=== PATIENT | male | born 1990 | race Caucasian/White ===

== ENCOUNTER 2022-01-20 02:34 | Inpatient (IN) | payer MEDICAID ==
[~2022-01-20] VITALS: Ht 365.8 cm; Wt 59.5 kg
[2022-01-20] VITALS (15 sets, daily range): BP systolic 105–132; BP diastolic 59–80
[2022-01-20] MEDS ORDERED: metoclopramide 5 mg/ml inj IV ONE (02:45)
[2022-01-20] MEDS ORDERED: normal saline 1000ml 1,000 ML IV ONE ×4 (03:05→04:40)
[2022-01-20 03:14] LABS: BASOPHILS % (AUTO) 0.2 % (0-1); EOSINOPHILS % (AUTO) 0.1 % (0-6); LYMPHOCYTES # (AUTO) 2.3 X10'3 (1.1-4.8); LYMPHOCYTES % (AUTO) 10.5 % (21-51); MEAN PLATELET VOLUME 9.5 FL (7.4-10.4); MONOCYTES # (AUTO) 0.9 X10'3 (0-0.9); MONOCYTES % (AUTO) 4.1 % (2-12); NEUTROPHILS # (AUTO) 18.8 X10'3 (1.8-7.7); NEUTROPHILS % (AUTO) 85.1 % (42-75); PLATELET COUNT 555 X10'3 (140-440); WHITE BLOOD COUNT 22.1 X10'3 (4.5-11.0)
[2022-01-20 03:15] LABS: CLARITY,URINE CLEAR (Clear); COLOR,URINE YELLOW (Yellow); GLUCOSE, URINE 500 mg/dl (Neg); KETONES,URINE >=80 mg/dl (Neg); LEUKOCYTE ESTERASE ,URINE NEGATIVE (Neg); NITRITES, URINE NEGATIVE (Neg); OCCULT BLOOD,URINE TRACE-INTACT (Neg); PH,URINE 5.5 (4.8-8.0); PROTEIN,URINE 30 mg/dl (Neg); UROBILINOGEN,URINE 0.2 E.U/dL (0.2-1.0)
[2022-01-20 03:23] LABS: ALANINE AMINOTRANSFERASE 78 U/L (12-78); ALBUMIN 3.5 G/DL (3.4-5.0); ALBUMIN/GLOBULIN RATIO 0.8 (1.1-1.5); ALKALINE PHOSPHATASE 88 IU/L (46-116); ANION GAP 33 (8-16); ASPARTATE AMINO TRANSFERASE 76 U/L (10-37); BILIRUBIN,TOTAL 0.5 MG/DL (0.1-1.0); BLOOD UREA NITROGEN 17 MG/DL (7-18); BUN/CREATININE RATIO 11.5 (5.4-32.0); CALCIUM 8.8 MG/DL (8.5-10.1); CHLORIDE 99 MMOL/L (99-107); CREATININE 1.48 MG/DL (0.60-1.10); LIPASE 65 U/L (73-393); POTASSIUM 4.9 MMOL/L (3.5-5.1); SODIUM 138 MMOL/L (135-145); TOTAL PROTEIN 7.7 G/DL (6.4-8.2); eGFR 55 ML/MIN
[2022-01-20 03:25] LABS: GLUCOSE 495 MG/DL (70-104); TOTAL CARBON DIOXIDE 6.1 MMOL/L (24-32)
[2022-01-20 03:26] LABS: UA COLLECTION TYPE URINAL
[2022-01-20 03:27] LABS: BACTERIA,URINE NONE SEEN /HPF (Neg); RBC,URINE 0-2 /HPF (0-2); SQUAMOUS EPITHELIAL CELL,UR FEW /LPF (FEW); WBC,URINE NONE SEEN /HPF (0-4); YEAST FEW /HPF (NEGATIVE)
[2022-01-20] MEDS ORDERED: potassium CL 20mEq in D5-1/2NS 1,000 ML IV PRN ×2 (03:30→11:30)
[2022-01-20] MEDS ORDERED: insulin regular, human 10 units/0.1 ml syringe IV PRN (03:30)
[2022-01-20] MEDS ORDERED: Insulin Reg/NS 100units/100mL 100 ML IV SCH (03:30)
[2022-01-20 03:33] LABS: HEMOGLOBIN 13.5 g/dl (14.0-17.9); MEAN CORPUSCULAR HGB CONC 32.9 g/dL (33.0-36.5); RED CELL DISTRIBUTION WIDTH 15.4 % (11.5-14.5)
[2022-01-20 03:44] LABS: ABG BASE EXCESS -25.7 mmol/L (-2.0-2.0); ABG HCO3 3.3 mmol/L (22.0-26.0); ABG OXYGEN SATURATION 97.9 % (94-97); ABG PCO2 (T) 12.9 mmHg (35.0-48.0); ABG PO2 (T) 130.9 mmHg (75.0-100.0); ALLEN'S TEST po; FCOHb 0.3 % (0.0-3.9); FMetHb 0.4 % (0.0-1.5); FO2Hb 97.2 % (94-97); PATIENT TEMPERATURE 36.4; TOTAL HEMOGLOBIN 12.6 G/dl (14.0-18.0)
[2022-01-20 03:45] LABS: PHOSPHORUS 5.3 MG/DL (2.3-4.5)
[2022-01-20 04:20] LABS: TOTAL CELLS COUNTED 100
[2022-01-20 04:21] LABS: ANISOCYTOSIS 1+; LARGE PLATELETS FEW; PLATELET ESTIMATE INCREASED
[2022-01-20] MEDS: potassium cl 20mEq in 1/2 NS 1,000 ML IV SCH ×3 (04:27→08:00)
--- NOTE | 2022-01-20 05:00 | NUR ---
PT BLOOD GLUCOSE CAME DOWN FROM 475 TO 383. INSULIN RATE WILL STAY AT 5 UNITS/HR PER PROTOCOL
[2022-01-20 05:09] LABS: URINE AMPHETAMINE SCREEN NEGATIVE (Neg); URINE BARBITUATE SCREEN NEGATIVE (Neg); URINE BENZODIAZEPINES SCREEN NEGATIVE (Neg); URINE CANNABINOID SCREEN POSITIVE (Neg); URINE COCAINE SCREEN NEGATIVE (Neg); URINE METHADONE SCREEN NEGATIVE (Neg); URINE OPIATE SCREEN NEGATIVE (Neg); URINE PHENCYCLIDINE SCREEN NEGATIVE (Neg)
[2022-01-20] MEDS: normal saline 1000ml 1,000 ML IV SCH ×4 (07:02→15:30)
--- NOTE | 2022-01-20 08:26 | NUR ---
Report given to HITESH Stockton
[2022-01-20 08:43] LABS: ALBUMIN 2.6 G/DL (3.4-5.0); ANION GAP 22 (8-16); BLOOD UREA NITROGEN 13 MG/DL (7-18); BUN/CREATININE RATIO 12.9 (5.4-32.0); CALCIUM 6.9 MG/DL (8.5-10.1); CHLORIDE 110 MMOL/L (99-107); CREATININE 1.01 MG/DL (0.60-1.10); GLUCOSE 143 MG/DL (70-104); MAGNESIUM 1.6 MG/DL (1.5-2.4); SODIUM 140 MMOL/L (135-145); eGFR 86 ML/MIN
[2022-01-20 08:54] LABS: PHOSPHORUS 1.1 MG/DL (2.3-4.5); TOTAL CARBON DIOXIDE 8.5 MMOL/L (24-32)
[2022-01-20] MEDS ORDERED: cefTRIAXone 1g/NS 100ml IVPB 100 ML IV ONE (10:15)
[2022-01-20] MEDS: ibuprofen tablet 400 MG TABLET PO PRN (11:39)
[2022-01-20] MEDS: Neutra Phos packet PO PRN (11:39)
[2022-01-20] MEDS: pantoprazole 40mg Tablet.DR PO SCH (11:40)
[2022-01-20 11:56] LABS: CLARITY,URINE CLEAR (Clear); COLOR,URINE YELLOW (Yellow); GLUCOSE, URINE 250 mg/dl (Neg); KETONES,URINE >=80 mg/dl (Neg); LEUKOCYTE ESTERASE ,URINE NEGATIVE (Neg); NITRITES, URINE NEGATIVE (Neg); OCCULT BLOOD,URINE TRACE-INTACT (Neg); PROTEIN,URINE NEGATIVE (Neg); UROBILINOGEN,URINE 0.2 E.U/dL (0.2-1.0)
[2022-01-20 12:08] LABS: UA COLLECTION TYPE NON-SPECIFIED
[2022-01-20 12:13] LABS: FINE GRANULAR CAST 0-3 /LPF (NEGATIVE); MUCUS STRANDS FEW /LPF (Neg); SQUAMOUS EPITHELIAL CELL,UR NONE SEEN /LPF (FEW)
[2022-01-20 12:15] LABS: BACTERIA,URINE FEW /HPF (Neg); RBC,URINE 0-2 /HPF (0-2); WBC,URINE 0-4 /HPF (0-4)
[2022-01-20 12:19] LABS: ALANINE AMINOTRANSFERASE 81 U/L (12-78); ALBUMIN 2.6 G/DL (3.4-5.0); ALBUMIN/GLOBULIN RATIO 0.8 (1.1-1.5); ALKALINE PHOSPHATASE 65 IU/L (46-116); ANION GAP 17 (8-16); ASPARTATE AMINO TRANSFERASE 112 U/L (10-37); BILIRUBIN,TOTAL 0.3 MG/DL (0.1-1.0); BLOOD UREA NITROGEN 11 MG/DL (7-18); CALCIUM 7.3 MG/DL (8.5-10.1); CHLORIDE 110 MMOL/L (99-107); GLUCOSE 107 MG/DL (70-104); MAGNESIUM 1.8 MG/DL (1.5-2.4); PHOSPHORUS 1.8 MG/DL (2.3-4.5); POTASSIUM 3.8 MMOL/L (3.5-5.1); SODIUM 138 MMOL/L (135-145); TOTAL PROTEIN 5.8 G/DL (6.4-8.2); eGFR 87 ML/MIN
[2022-01-20] MEDS: ondansetron/PF 4mg/2ml inj IV PRN (12:29)
[2022-01-20] MEDS: HYDROcodone/acetaminophen 5mg/325mg tablet PO PRN ×2 (14:32→19:31)
[2022-01-20 16:14] LABS: ALBUMIN 2.5 G/DL (3.4-5.0); ANION GAP 13 (8-16); BLOOD UREA NITROGEN 9 MG/DL (7-18); CALCIUM 7.1 MG/DL (8.5-10.1); CHLORIDE 110 MMOL/L (99-107); GLUCOSE 183 MG/DL (70-104); PHOSPHORUS 2.1 MG/DL (2.3-4.5); POTASSIUM 3.8 MMOL/L (3.5-5.1); SODIUM 138 MMOL/L (135-145); TOTAL CARBON DIOXIDE 15.1 MMOL/L (24-32); eGFR 87 ML/MIN
[2022-01-20] MEDS ORDERED: INSU100V9 SQ (16:21)
[2022-01-20] MEDS ORDERED: IBUP-1986 PO (16:21)
[2022-01-20] MEDS ORDERED: INSU100C10 SQ (16:21)
--- NOTE | 2022-01-20 18:30 | NUR ---
I have received report of a 31 year old male who is admitted with DKA who has a history of DM1, gastroparesis, hepatitis, chronic pain secondary to nonfunctional spinal pain pump. It was reported that the pt had been vomiting for 2 days. Pt is no longer in diabetic ketoacidosis, pt is eating with out difficulties, denies nausea is alert and oriented, being transitioned off insulin drip to nutritional coverage.
[2022-01-20] MEDS ORDERED: insulin regular, human U-100 3ml vial - multi-dose SQ SCH (18:55)
[2022-01-20] MEDS ORDERED: glucagon, human recombinant 1mg kit SUBCUT PRN (18:55)
[2022-01-20] MEDS ORDERED: dextrose 50%-water 50ml dispensing syringe IV PRN ×2 (18:55)
[2022-01-20] MEDS ORDERED: DEXTROSE 15 GM of carb/4 tabs (each vial/BOTTLE has 4 tablets) PO PRN ×2 (18:55)
[2022-01-20] MEDS: insulin Lispro (HumaLOG) vial - multi-dose SQ SCH (19:12)
[2022-01-20] MEDS: insulin glargine (Lantus) pen - multi-dose SQ SCH (20:00)
[2022-01-20] MEDS: enoxaparin 40mg/0.4ml syringe SUBCUT SCH (20:51)
--- NOTE | 2022-01-20 20:58 | NUR ---
Spoke to Rayo Horton NP-D who is covering for critical care this evening regarding pts H.S. glucose of 87, evening Lantus will be held this evening. Pt had only ate 10 carbs. at the evening meal. Pt continues to deny feelings of nausea, he just doesn't have much of an apatite.
[2022-01-21] VITALS (23 sets, daily range): BP systolic 105–139; BP diastolic 66–90
[2022-01-21] MEDS: ondansetron/PF 4mg/2ml inj IV PRN (04:04)
[2022-01-21] MEDS: insulin Lispro (HumaLOG) vial - multi-dose SQ SCH ×4 (04:04→18:38)
--- NOTE | 2022-01-21 04:08 | NUR ---
Pt glucose checked, glucose 310 spoke to Rakesh WHITESIDE as no glucose coverage is due at this time, Ok to give 6 units of Humalog, pt also c/o nausea zofran given per orders no other needs at this time
--- NOTE | 2022-01-21 05:53 | NUR ---
Pt resting without any s/sx of distress or discomfort.
[2022-01-21 06:31] LABS: PHOSPHORUS 1.3 MG/DL (2.3-4.5)
[2022-01-21 06:56] LABS: BASOPHILS % (AUTO) 0.2 % (0-1); EOSINOPHILS # (AUTO) 0.1 X10'3 (0-0.9); EOSINOPHILS % (AUTO) 0.7 % (0-6); HEMATOCRIT 33.6 % (42.0-52.0); LYMPHOCYTES # (AUTO) 1.3 X10'3 (1.1-4.8); LYMPHOCYTES % (AUTO) 11.2 % (21-51); MEAN CORPUSCULAR HEMOGLOBIN 26.3 PG (27.0-31.0); MEAN CORPUSCULAR HGB CONC 32.7 g/dL (33.0-36.5); MEAN CORPUSCULAR VOLUME 80.4 FL (78-98); MEAN PLATELET VOLUME 9.1 FL (7.4-10.4); MONOCYTES # (AUTO) 0.5 X10'3 (0-0.9); MONOCYTES % (AUTO) 4.6 % (2-12); NEUTROPHILS # (AUTO) 9.6 X10'3 (1.8-7.7); NEUTROPHILS % (AUTO) 83.3 % (42-75); PLATELET COUNT 318 X10'3 (140-440); RED BLOOD COUNT 4.17 X10'6 (4.70-6.10); RED CELL DISTRIBUTION WIDTH 15.7 % (11.5-14.5); WHITE BLOOD COUNT 11.5 X10'3 (4.5-11.0)
[2022-01-21 07:23] LABS: ALANINE AMINOTRANSFERASE 72 U/L (12-78); ALBUMIN 2.4 G/DL (3.4-5.0); ALBUMIN/GLOBULIN RATIO 0.8 (1.1-1.5); ALKALINE PHOSPHATASE 63 IU/L (46-116); ANION GAP 16 (8-16); ASPARTATE AMINO TRANSFERASE 70 U/L (10-37); BILIRUBIN,TOTAL 0.4 MG/DL (0.1-1.0); BLOOD UREA NITROGEN 8 MG/DL (7-18); BUN/CREATININE RATIO 7.8 (5.4-32.0); CALCIUM 7.7 MG/DL (8.5-10.1); CHLORIDE 109 MMOL/L (99-107); CREATININE 1.02 MG/DL (0.60-1.10); GLUCOSE 217 MG/DL (70-104); MAGNESIUM 1.8 MG/DL (1.5-2.4); POTASSIUM 3.3 MMOL/L (3.5-5.1); SODIUM 138 MMOL/L (135-145); TOTAL PROTEIN 5.6 G/DL (6.4-8.2); eGFR 85 ML/MIN
[2022-01-21 07:30] LABS: TOTAL CARBON DIOXIDE 13.5 MMOL/L (24-32)
[2022-01-21] MEDS: Neutra Phos packet PO PRN ×2 (07:53→12:29)
[2022-01-21] MEDS: cefTRIAXone 1g/NS 100ml IVPB 100 ML IV SCH (07:53)
[2022-01-21] MEDS: pantoprazole 40mg Tablet.DR PO SCH (07:53)
[2022-01-21] MEDS: insulin glargine (Lantus) pen - multi-dose SQ SCH ×2 (08:12→19:44)
[2022-01-21] MEDS ORDERED: magnesium Cl slow-release 64mg tablet PO PRN (09:50)
[2022-01-21] MEDS ORDERED: magnesium 4gm in 100ml NS 100 ML IV PRN (09:50)
[2022-01-21] MEDS ORDERED: potassium CL 10mEq/100ml bag 100 ML IV PRN (09:50)
[2022-01-21] MEDS ORDERED: magnesium 2GM in 50ml NS 50 ML IV PRN (09:50)
[2022-01-21] MEDS ORDERED: POTASSIUM BICARB 20meq eff tab 20 MEQ TABLET.EFF PO PRN (09:50)
--- NOTE | 2022-01-21 11:07 | NUR ---
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 Pt takes 15 units Lantus AM/HS and humalog at meal times per EMR though pt has no PCP per RN at rounds this AM. Pt follows meds Rx per EMR though, per RN this AM, pt reports holding Lantus HS if Glu WNL. PO pending first carb controlled meal this AM though pt has persistent nausea still per RN at rounds; receiving PRN zofran per EMR. Noted pt ht 144in per EMR; RD d/w RN who reports pt ht 72in making true BMI 17.8 at this time. LBM 01/18. Will monitor for PO trends and further nutrition intervention needs this admit. Rec: 1. continue carb controlled diet; encourage PO 2. monitor for PO trends and ONS needs 3. bowel care per rx 4. daily wts; monitor for wt trends given BMI 17.8 per initial admit wt 5. DM ed once more appropriate prior to discharge; hx T1DM A1C 11.0% w/ persistent nausea at this time Addendum: 01/21/22 at [address] Amended: Links added. 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 Pt takes 15 units Lantus AM/HS and humalog at meal times per EMR though pt has no PCP per RN at rounds this AM. Pt follows meds Rx per EMR though, per RN this AM, pt reports holding Lantus HS if Glu WNL. PO pending first carb controlled meal this AM though pt has persistent nausea still per RN at rounds; receiving PRN zofran per EMR. Noted pt ht 144in per EMR; RD d/w RN who reports pt ht 72in making true BMI 17.8 at this time. LBM 01/18. Will monitor for PO trends and further nutrition intervention needs this admit. Rec: 1. continue carb controlled diet; encourage PO 2. monitor for PO trends and ONS needs 3. bowel care per rx 4. daily wts; monitor for wt trends given BMI 17.8 per initial admit wt 5. DM ed once more appropriate prior to discharge; hx T1DM A1C 11.0% w/ persistent nausea at this time
[2022-01-21 12:27] LABS: ALANINE AMINOTRANSFERASE 71 U/L (12-78); ALBUMIN 2.4 G/DL (3.4-5.0); ALBUMIN/GLOBULIN RATIO 0.8 (1.1-1.5); ALKALINE PHOSPHATASE 63 IU/L (46-116); ANION GAP 18 (8-16); ASPARTATE AMINO TRANSFERASE 74 U/L (10-37); BILIRUBIN,TOTAL 0.3 MG/DL (0.1-1.0); BLOOD UREA NITROGEN 7 MG/DL (7-18); BUN/CREATININE RATIO 7.9 (5.4-32.0); CALCIUM 7.7 MG/DL (8.5-10.1); CHLORIDE 105 MMOL/L (99-107); CREATININE 0.89 MG/DL (0.60-1.10); GLUCOSE 211 MG/DL (70-104); MAGNESIUM 1.9 MG/DL (1.5-2.4); PHOSPHORUS 2.3 MG/DL (2.3-4.5); POTASSIUM 3.9 MMOL/L (3.5-5.1); SODIUM 138 MMOL/L (135-145); TOTAL PROTEIN 5.6 G/DL (6.4-8.2); eGFR > 90 ML/MIN
[2022-01-21 12:31] LABS: TOTAL CARBON DIOXIDE 14.6 MMOL/L (24-32)
[2022-01-21] MEDS: ibuprofen tablet 400 MG TABLET PO PRN ×2 (13:29→21:00)
[2022-01-21] MEDS: HYDROcodone/acetaminophen 5mg/325mg tablet PO PRN (17:06)
--- NOTE | 2022-01-21 18:15 | NUR ---
Patient in room CICU 2013. I have received report from Isabela PROCTOR and had the opportunity to ask questions and assume patient care.
[2022-01-21] MEDS: enoxaparin 40mg/0.4ml syringe SUBCUT SCH (19:37)
[2022-01-21] MEDS: normal saline 1000ml 1,000 ML IV SCH (19:37)
[2022-01-21] MEDS: K and/or MAG REPLACEMENT MC SCH (19:38)
[2022-01-22] VITALS (13 sets, daily range): BP systolic 94–121; BP diastolic 56–92
[2022-01-22] MEDS: normal saline 1000ml 1,000 ML IV SCH (03:50)
[2022-01-22 06:08] LABS: BASOPHILS % (AUTO) 0.6 % (0-1); EOSINOPHILS # (AUTO) 0.2 X10'3 (0-0.9); EOSINOPHILS % (AUTO) 3.1 % (0-6); HEMATOCRIT 29.2 % (42.0-52.0); HEMOGLOBIN 9.8 g/dl (14.0-17.9); LYMPHOCYTES # (AUTO) 2.3 X10'3 (1.1-4.8); MEAN CORPUSCULAR HEMOGLOBIN 26.2 PG (27.0-31.0); MEAN CORPUSCULAR HGB CONC 33.6 g/dL (33.0-36.5); MEAN CORPUSCULAR VOLUME 77.9 FL (78-98); MEAN PLATELET VOLUME 8.3 FL (7.4-10.4); MONOCYTES # (AUTO) 0.5 X10'3 (0-0.9); MONOCYTES % (AUTO) 7.5 % (2-12); NEUTROPHILS # (AUTO) 3.3 X10'3 (1.8-7.7); NEUTROPHILS % (AUTO) 51.8 % (42-75); PLATELET COUNT 273 X10'3 (140-440); RED BLOOD COUNT 3.75 X10'6 (4.70-6.10); RED CELL DISTRIBUTION WIDTH 15.9 % (11.5-14.5); WHITE BLOOD COUNT 6.3 X10'3 (4.5-11.0)
[2022-01-22 06:15] LABS: ALANINE AMINOTRANSFERASE 59 U/L (12-78); ALBUMIN/GLOBULIN RATIO 0.7 (1.1-1.5); ALKALINE PHOSPHATASE 53 IU/L (46-116); ANION GAP 8 (8-16); ASPARTATE AMINO TRANSFERASE 58 U/L (10-37); BILIRUBIN,TOTAL 0.1 MG/DL (0.1-1.0); BLOOD UREA NITROGEN 7 MG/DL (7-18); BUN/CREATININE RATIO 8.4 (5.4-32.0); CALCIUM 7.8 MG/DL (8.5-10.1); CHLORIDE 110 MMOL/L (99-107); CREATININE 0.83 MG/DL (0.60-1.10); GLUCOSE 163 MG/DL (70-104); PHOSPHORUS 2.6 MG/DL (2.3-4.5); SODIUM 142 MMOL/L (135-145); TOTAL CARBON DIOXIDE 24.2 MMOL/L (24-32); TOTAL PROTEIN 4.8 G/DL (6.4-8.2); eGFR > 90 ML/MIN
--- NOTE | 2022-01-22 06:30 | NUR ---
Patient in room CICU 2013. I have received report from HITESH Shannon and had the opportunity to ask questions and assume patient care.
--- NOTE | 2022-01-22 06:31 | NUR ---
Problems reprioritized. Patient report given, questions answered & plan of care reviewed with Marcelina PROCTOR.
[2022-01-22] MEDS: K and/or MAG REPLACEMENT MC SCH (07:06)
[2022-01-22] MEDS: pantoprazole 40mg Tablet.DR PO SCH (07:20)
[2022-01-22] MEDS: cefTRIAXone 1g/NS 100ml IVPB 100 ML IV SCH (07:20)
[2022-01-22] MEDS: POTASSIUM BICARB 20meq eff tab 20 MEQ TABLET.EFF PO PRN ×2 (07:20→11:02)
[2022-01-22] MEDS: insulin glargine (Lantus) pen - multi-dose SQ SCH (07:25)
[2022-01-22] MEDS: insulin Lispro (HumaLOG) vial - multi-dose SQ SCH ×2 (08:29→12:36)
--- NOTE | 2022-01-22 08:30 | NUR ---
Spoke with Dr. Knight on his early rounds, notified him of the patients K of 3.0, informed him that it is being replaced. Per Dr. Knight patient can more than likely go to the floor today.
[2022-01-22] MEDS ORDERED: ONDA4TAB12 PO (11:01)
[2022-01-22] MEDS: ibuprofen tablet 400 MG TABLET PO PRN (11:03)
--- NOTE | 2022-01-22 12:06 | NUR ---
F/u: Pt seen at bedside with SO present. Pt reports having T1DM for 12 years and states it's been about six months since he's seen a physician for DM management however is in the process of scheduling an appointment. Pt had routinely seen an plastics nurse prior up until going to [facility] where he saw a new physician at each visit. Pt reports having plenty of a supply of insulin and states he takes it per rx without issues. Pt reports checking his blood sugars 3-4 times a day and states he did notice his blood sugars had been elevated over the last month for unknown reasons. Pt unsure of most recent A1c prior to admit though does report h/o DKA which usually occurs following an infection. Pt denies questions about DM management at this time. RD contact information provided and pt encouraged to reach out if needed. Pt reports an improving appetite and denies food allergies, difficulty chewing, swallowing, constipation, or diarrhea. Will continue to follow. Addendum: 01/22/22 at [address] Amended: Links added.
--- NOTE | 2022-01-22 12:54 | NUR ---
Patient discharged and left via girlfriend. Patient walked downstairs with x1 staff member. Patient PIVs removed with cannula intact. All belongings left with patient including discharge packet and prescription. Discharge teaching given bedside by primary RN to patient and girlfriend, both stated an understanding of the information and were given time for questions and answers. Patient was encouraged to find a new PCP as soon as possible so that he can start managing his diabetes better. Patient stated an understanding and stated that, that is his intention. Patient was alert, oriented and in no apparent distress at time of discharge.
== END 2022-01-22 13:00 | disposition home or self-care (01) | DRG 420 ==
LOC: ER 02:36 → EDBD 02:36 → UNDOADMIN 08:11 → ED HOLD 08:11 → CICU 2S 08:53
PROVIDERS: ADMIT Internal Medicine; ATTEND Internal Medicine
DX: E10.10 Type 1 diabetes mellitus with ketoacidosis without coma (principal); E10.42 Type 1 diabetes mellitus with diabetic polyneuropathy; Z20.822 Contact with and (suspected) exposure to COVID-19; R00.0 Tachycardia, unspecified; F12.90 Cannabis use, unspecified, uncomplicated; G89.4 Chronic pain syndrome; Z79.4 Long term (current) use of insulin; Z86.19 Personal history of other infectious and parasitic diseases; Z87.891 Personal history of nicotine dependence; Z28.310 Unvaccinated for COVID-19
CPT/HCPCS: 36415; 36600; 71045; 80048; 80053; 80305; 81001; 82803; 82948; 83036; 83605; 83690; 83735; 84100; 84132; 84145; 85007; 85018; 85025; 87040; 87081; 96361; 96374; 96375; 99285; A6213; G0378; J0696; J1650; J1815; J2405; J2765; J3480; J7030; J7040